=== PATIENT | female | born 1960 | race Two or more races ===

== ENCOUNTER 2025-02-22 19:02 | Emergency (ER) | payer OTHER ==
[~2025-02-22] VITALS: Ht 165.1 cm; Wt 63.5 kg
[2025-02-22] MEDS ORDERED: LOSARTAN POTASS50 MG PO (19:10)
[2025-02-22] MEDS ORDERED: LIPITOR40 M1 PO (19:10)
[2025-02-22 19:17] VITALS: BP 142/83; O2SAT 98
[2025-02-22 19:44] LABS: BASO % 0.6 % (0.1-1.2); EOS # 0.11 (0.04-0.54); EOS % 1.6 % (0.7-7.0); LYMPH # 2.85 (1.18-3.74); LYMPH % 41.7 % (19.3-53.1); MEAN PLATELET VOLUME 9.10 fl (9.4-12.4); MONO # 0.41 (0.24-0.82); MONO % 6.0 % (4.7-12.5); NEUT # 3.42 (1.56-6.13); NEUT % 50.0 % (34.0-71.1); RED CELL DISTRIBUTION WIDTH 13.4 % (11.6-14.4)
[2025-02-22 20:17] LABS: BILIRUBIN TOTAL 0.43 mg/dL (0.3-1.2); CREATININE SERUM 0.82 mg/dL (0.55-1.02); GFR 70.41; GLUCOSE FASTING 144.0 mg/dL (65-100)
[2025-02-22 20:50] LABS: ALT/SGPT 47.0 U/L (12-78); AST/SGOT 35.0 U/L (15-37); BUN CREA RATIO 26.0 (7.0-25.0); GLOBULINA 3.4 G/DL (2.4-3.5); OSMOLALITY SERUM 290.0 MOSM/KG (275-295)
[2025-02-22] MEDS ORDERED: KETOROLAC TROMETHAMINE 30 MG VIAL IM STA (20:55)
== END 2025-02-22 21:14 | disposition home or self-care (01) ==
LOC: ER 19:02
PROVIDERS: General Practice
DX: R07.9 Chest pain, unspecified (principal); M94.0 Chondrocostal junction syndrome [Tietze]